=== PATIENT | male | born 1995 | race Caucasian/White ===

== ENCOUNTER 2017-12-21 20:22 | Emergency (ER) | payer OTHER ==
[~2017-12-21] VITALS: Ht 175.3 cm; Wt 58.5 kg
[2017-12-21 20:32] VITALS: BP 114/75
--- NOTE | 2017-12-21 20:40 | NUR ---
TO LOBBY, A/W BED, AMBULATORY, VSS, EKG DONE , ERMD NOTED
--- NOTE | 2017-12-21 21:39 | NUR ---
PT AMBULATED TO ER BED 05
--- NOTE | 2017-12-21 21:40 | NUR ---
PATIENT PRESENTS TO ED WITH FAST HEART BEATING. PATIENT STATES WHEN HE IS SLEEPING IS GETS WOKEN UP WITH HIS "HEART BEATING REALLY FAST". PATIENT DENIES ANY CHEST PAIN, SOB, DIAPHORESIS WHEN THIS OCCURS. PATIENT DENIES FEVERS, N/V/D. PATIENT STATES HE TOSSES AND TURNS THE REST OF THE NIGHT UNTIL HE FALLS BACK ASLEEP. PATIENT STATES HE IS STRESSED OUT AT HOME. ER MD MADE AWARE OF PATIENT STATUS AT THIS TIME. PATIENT IS PLACED ON HEART MONITOR AT THIS TIME FOR FURTHER EVALUATION. HR IS 72 AT THIS TIME. NO SIGNS OR SYMPTOMS OF ACUTE DISTRESS NOTED. WILL CONTINUE TO MONITOR.
[2017-12-21 22:40] VITALS: BP 102/68
--- NOTE | 2017-12-21 22:40 | NUR ---
Patient discharged with v/s stable. Written and verbal after care instructions given and explained. Patient alert, oriented and verbalized understanding of instructions. Ambulatory with steady gait. All questions addressed prior to discharge. ID band removed. Patient advised to follow up with PMD. Rx of Tylenol PM given. Patient educated on indication of medication including possible reaction and side effects. Opportunity to ask questions provided and answered.
== END 2017-12-21 22:40 | disposition home or self-care (01) ==
LOC: MED 20:22
DX: G47.00 Insomnia, unspecified (principal); R00.2 Palpitations
CPT/HCPCS: 93005; 99283

== ENCOUNTER 2018-01-05 15:51 | Emergency (ER) | payer OTHER ==
[~2018-01-05] VITALS: Ht 175.3 cm; Wt 53.1 kg
[2018-01-05 15:59] VITALS: BP 124/61
--- NOTE | 2018-01-05 16:20 | NUR ---
22 YO MALE BIB SELF FOR RAPID HEART RATE. PT DENIES N/V/D; SKIN IS PINK/WARM/DRY; AAOX4 WITH EVEN AND STEADY GAIT; LUNGS CLEAR BL; HR EVEN AND REGULAR; PT DENIES ANY FEVER, CP, SOB, OR COUGH AT THIS TIME; PATIENT STATES PAIN OF 2/10 AT THIS TIME; VSS; PATIENT POSITIONED FOR COMFORT; HOB ELEVATED; BEDRAILS UP X1; BED DOWN. ER MD MADE AWARE OF PT STATUS.
--- NOTE | 2018-01-05 17:05 | NUR ---
Patient being evaluated by physician at bedside.
[2018-01-05 18:55] VITALS: BP 119/58
--- NOTE | 2018-01-05 18:55 | NUR ---
Patient discharged with v/s stable. Written and verbal after care instructions given and explained. Patient verbalized understanding. Ambulatory with steady gait. All questions addressed prior to discharge. Advised to follow up with PMD.
== END 2018-01-05 18:55 | disposition home or self-care (01) ==
LOC: MED 15:51
DX: F41.9 Anxiety disorder, unspecified (principal); R94.31 Abnormal electrocardiogram [ECG] [EKG]
CPT/HCPCS: 93005; 99284

== ENCOUNTER 2018-06-04 07:59 | Emergency (ER) | payer OTHER ==
[~2018-06-04] VITALS: Ht 177.8 cm; Wt 57.6 kg
[2018-06-04 08:16] VITALS: BP 118/66
[2018-06-04 09:01] VITALS: BP 118/66
== END 2018-06-04 09:01 | disposition home or self-care (01) ==
LOC: MED 07:59
DX: R22.0 Localized swelling, mass and lump, head (principal)
CPT/HCPCS: 99283

== ENCOUNTER 2018-08-08 23:47 | Emergency (ER) | payer OTHER ==
[~2018-08-08] VITALS: Ht 177.8 cm; Wt 57.6 kg
[2018-08-09 00:11] VITALS: BP 123/75
--- NOTE | 2018-08-09 00:14 | NUR ---
PT AMBULATED TO LOBBY WITH VSS.
--- NOTE | 2018-08-09 01:16 | NUR ---
PATIENT PRESENTS TO ED WITH IGHT EYE, LIPS, AND GENITALS, RED, DRY FLAKING SKIN, AND EDEMA X5 DAYS. ITCHING, BURNING. NO CHANGE IN VISION. AFEBRILE. VSS. DENIES N/V/D; SKIN IS PINK/WARM/DRY; AAOX4 WITH EVEN AND STEADY GAIT; LUNGS CLEAR BL; HR EVEN AND REGULAR; PT DENIES ANY FEVER, CP, SOB, OR COUGH AT THIS TIME; PATIENT STATES PAIN OF 2/10 AT THIS TIME; VSS; PATIENT POSITIONED FOR COMFORT; HOB ELEVATED; BEDRAILS UP X2; BED DOWN. ER MD MADE AWARE OF PT STATUS.
--- NOTE | 2018-08-09 01:55 | NUR ---
Patient being evaluated by physician at bedside.
[2018-08-09 02:23] VITALS: BP 122/73
--- NOTE | 2018-08-09 02:23 | NUR ---
Patient discharged with v/s stable. Written and verbal after care instructions given and explained. Patient alert, oriented and verbalized understanding of instructions. Ambulatory with steady gait. All questions addressed prior to discharge. ID band removed. Patient advised to follow up with PMD. Rx of DOXYCYLINE given. Patient educated on indication of medication including possible reaction and side effects. Opportunity to ask questions provided and answered.
== END 2018-08-09 02:23 | disposition home or self-care (01) ==
LOC: MED 23:47
DX: N48.22 Cellulitis of corpus cavernosum and penis (principal)
CPT/HCPCS: 99283

== ENCOUNTER 2018-08-13 02:42 | Emergency (ER) | payer OTHER ==
[~2018-08-13] VITALS: Ht 177.8 cm; Wt 56.7 kg
[2018-08-13 02:45] VITALS: BP 113/76
--- NOTE | 2018-08-13 02:45 | NUR ---
TO BED #08 AMBULATORY, REPORT GIVEN TO MEENAKSHI WALKER
--- NOTE | 2018-08-13 02:45 | NUR ---
PATIENT C/O PENILE PAIN X 4 DAYS. PENILE REGION IS ERYTHEMOUS AND SWOLLEN, PATIENT DOES STATES HE HAS DIFFICULTY URINATING, STATES BURNING. PATIENT STATES HE WAS HERE 2 DAYS AGO, GIVEN DOXYCYCLINE AND PREDINSONE, WHICH DID GIVE RELIEF BUT STATES REGION IS STILL ITCHY. PATIENT GCS 15, AAOX4, AMBULATORY WITH STEADY GAIT, NO ACUTE DISTRESS NOTED, WILL CONTINUE TO MONITOR
[2018-08-13 03:30] VITALS: BP 113/76
--- NOTE | 2018-08-13 04:05 | NUR ---
DISCHARGE INSTRUCTIONS GIVEN. PT LEFT WITH ITCHING UNDER CONTROLL. 0/10 PAIN. VSS. VERBALIZED UNDERSTANDING OF DC INSTRUCTIONS. QUESTIONS ANSWERED. ACCOMPANIED BY GIRLFRIEND UPON DC.
== END 2018-08-13 03:30 | disposition home or self-care (01) ==
LOC: MED 02:42
DX: R21 Rash and other nonspecific skin eruption (principal)
CPT/HCPCS: 99281